=== PATIENT | female | born 1975 | race Caucasian/White ===

== ENCOUNTER 2019-11-01 23:36 | Emergency (ER) | payer SELFPAY ==
[~2019-11-01] VITALS: Ht 172.7 cm; Wt 126.5 kg
--- NOTE | 2019-11-01 23:52 | NUR ---
C/O RIGHT LOWER BACK PAIN. STATES SHE PULLED A MUSCLE IN 07/2019.
[2019-11-01] MEDS ORDERED: OMEP40CA42 PO (23:57)
[2019-11-01] MEDS ORDERED: FAMO20TA7 PO (23:57)
[2019-11-01] MEDS ORDERED: SYMBICORT (23:57)
[2019-11-01] MEDS ORDERED: HYDR-826 PO (23:57)
[2019-11-01] MEDS ORDERED: METF500T17 PO (23:57)
[2019-11-02] MEDS ORDERED: METHOCARBAMOL 750 MG TABLET PO ONE
[2019-11-02] MEDS ORDERED: KETOROLAC 30 MG/1 ML IM ONE
[2019-11-02] MEDS ORDERED: METHOCARBAMOL 750 MG TABLET ONE (00:03)
[2019-11-02] MEDS ORDERED: KETOROLAC 30 MG/1 ML ONE (00:03)
--- NOTE | 2019-11-02 00:10 | NUR ---
MEDICATED PER MAR. SIDE RAILS UP AND LOCKED, CALL LIGHT PLACED WITHIN REACH.
[2019-11-02 00:33] VITALS: BP 121/75
== END 2019-11-02 00:52 | disposition home or self-care (01) ==
LOC: ED 23:56
DX: M54.16 Radiculopathy, lumbar region (principal); M54.41 Lumbago with sciatica, right side; E11.9 Type 2 diabetes mellitus without complications
CPT/HCPCS: 96372; 99283; J1885